=== PATIENT | female | born 1965 | race Caucasian/White ===

== ENCOUNTER 2018-12-27 17:42 | Observation (INO) ==
[2018-12-27] MEDS ORDERED: Ibuprofen 600 MG TABLET PO ONE (18:06)
[2018-12-27] MEDS ORDERED: 0.9 % Sodium Chloride 1,000 ML IVC ONE (18:26)
[2018-12-27] MEDS ORDERED: Ipratropium/Albuterol Neb 3 ML IH ONE (18:28)
[2018-12-27 18:52] LABS: Basophils % 0.3 %; Hematocrit 41.6 % (35.3-44.9); Hemoglobin 14.2 g/dL (11.5-15.4); Immature Granulocytes % 0.4 % (0-4); Lymphocytes # 1.4 K/mcL (0.6-4.6); Lymphocytes % 17.2 %; Mean Corpuscular HGB Conc 34.1 g/dL (31.6-35.5); Mean Corpuscular Hemoglobin 31.6 pg (28.0-33.3); Mean Corpuscular Volume 92.4 fL (83.0-100.0); Mean Platelet Volume 9.9 fL (9.4-12.4); Monocytes # 0.5 K/mcL (0.0-1.3); Monocytes % 6.3 %; Neutrophils # 6.1 K/mcL (1.6-8.9); Platelet Count 163 K/mcL (140-400); Red Cell Distribution Width 12.1 % (11.5-14.5); Segmented Neutrophils % 75.8 %
--- NOTE | 2018-12-27 18:53 | Emergency Department Note ---
Disposition Clinical Impression: Fever of unknown origin, Altered mental status Disposition: Admitted As Inpatient Condition: Fair Time of Disposition: 23:46 General Adult HPI - General Chief complaint: ED Fever Stated complaint: FLu like symptoms Time Seen by Provider: 12/27/18 18:05 Source: patient Limitations: no limitations Nursing Notes Reviewed: Yes Vital Signs Reviewed: Yes - History of Present Illness HPI Narrative: Male patient presents emergency with her friend. Concern for possible flu. She was started on Tamiflu yesterday. Has had muscle aches and not feeling well since Tuesday. Approximately 6 days ago. Patient reports a cough nausea vomiting. Denies any abdominal pain. Denies any chest pain or shortness of breath. Patient is confused at this time. Patient states that she started g etting confused today. Patient is not aware of the year. She is able to figure out where we are after asking some questions. She currently complains of feeling fatigued and muscle aches. Pain Scale: 10 - Related Data Allergies Allergy/AdvReac Type Severity Reaction Status Date / Time No Known Allergies Allergy Verified 11/28/18 12:29 All systems ED: reviewed and negative except as stated. Review of Systems: As Per HPI Constitutional: Reports: fever ENT ED: Reports: congestion Cardiovascular: Denies: chest pain, syncope Respiratory: Reports: cough. Denies: dyspnea Gastrointestinal: Reports: nausea, vomiting. Denies: abdominal pain, diarrhea Genitourinary: Denies: urgency, dysuria, frequency Neurological: Reports: headache Past Medical History - Past Medical History Attestation: Yes The following information was validated with the patient. Source: patient Medical history: Reports: RA, other Surgical history: Reports: Psychiatric history: Reports: anxiety, depression - Social History Smoking Status: Current every day smoker Smokeless Tobacco Status: No Alcohol use: Reports: none Drug use: Reports: none Physical Exam - General Limitations: no limitations General appearance: alert, in no apparent distress - Head Head exam: atraumatic, normocephalic, normal inspection - Eye Eye exam: Present: normal appearance, PERRL, EOMI - ENT ENT exam: normal exam, normal oropharynx, mucous membranes moist - Neck Neck exam: Present: normal inspection, full ROM, trachea midline - Chest Chest inspection: Present: normal inspection, symmetric chest wall rise - Respiratory Respiratory exam: Present: normal lung sounds bilaterally. Absent: respiratory distress, accessory muscle use - Cardiovascular Cardiovascular exam: Present: normal rhythm, tachycardia, normal heart sounds - Abdominal Exam Abdominal exam: Present: soft, Non-Tender. Absent: tenderness, distention, guarding, rebound, rigidity, organomegaly - Extremities Exam Extremities exam: Present: normal inspection, full ROM. Absent: tenderness, pedal edema - Neurological Exam Neurological exam: Present: alert, other (Confused. Unaware of the year. Knows the month.) - Psychiatric Psychiatric exam: Present: normal affect, normal mood - Skin Skin exam: Present: warm, dry, intact, normal color. Absent: rash, cyanosis, diaphoresis Course Course Narrative: Female patient who is presently being treated with Tamiflu presents confused. Complaining of body aches. She is febrile and tachycardic. We did get a basic lab workup we will get a CT of patient's head. Patient does not appear to have meningeal irritation. She is able to move her neck and has full range of motion of her legs as well. She is moving all 4 extremities well. Denies any trauma. Lung sounds are mildly rhonchorous. She does not appear to be in respiratory distress. We will do a sepsis workup on patient provide her with fluids at this time. She was started on Tamiflu yesterday for a likely flu diagnosis secondary to her body aches. - Reevaluation(s) Reevaluation #1: Patient's chest x-ray consistent with perivascular congestion. We will only give patient 1 L of fluids secondary to this. We are withholding further fluid to completely 30 mL/kg bolus. Patient's CT had showed an asymmetric hyperdense lesion in the cerebellar area. We will get an MRI. Flu swab was negative. Lab workup is grossly unremarkable. Time: 19:56 Reevaluation #2: MRI back. Shows that there is no mass the patient's head. Likely artifact on CT. Due to patient's altered mental status and her fever with no source we will pursue a LP at this time. We have started empiric antibiotics. We are still waiting for a urine. Patient has been consented. Time: 22:42 Reevaluation #3: Patient was placed on empiric antibiotics. Lumbar puncture was attempted with no success by myself or by Dr. Slaughter. Time: 23:15 - Consultations Consultation #1: Interventional radiology has been contacted and will be coming in to evaluate patient. Time: 23:42 Vital Signs Temperature 102.3 F H 12/27/18 17:50 Pulse Rate 105 12/27/18 17:50 Respiratory Rate 18 12/27/18 17:50 Blood Pressure 120/51 12/27/18 17:50 O2 Sat by Pulse Oximetry 96 12/27/18 17:50 Temperature 102.3 F H 12/27/18 17:50 Pulse Rate 105 12/27/18 17:50 Respiratory Rate 18 12/27/18 18:58 Blood Pressure 120/51 12/27/18 17:50 O2 Sat by Pulse Oximetry 96 12/27/18 18:58 Oxygen Delivery Oxygen Delivery Room Air Procedures - Lumbar Puncture Consent Obtained: written consent Time Out Performed: Yes Patient Position: left lateral decubitus Skin Prep: Povidone-Iodine 1%, 0.5% Chlorhexidine/Alcohol Local Anesthetic: lidocaine 1% Amount of anesthesia used (mL): 3 Spinal Needle Gauge: 20G Interspace Used: L4-L5 Complications: Need to have other Practitioner Attempt, unable to obtain CSF Medical Decision Making - Medical Records Medical records reviewed: Yes I reviewed the patient's medical records. - Lab Data Lab results reviewed: Yes I reviewed the patient's lab results. Result diagrams: 12/27/18 18:34 12/28/18 06:02 Lab Results 12/27/18 12/27/18 12/27/18 Range/Units 18:34 18:34 18:34 WBC 8.0 (4.3-11.1) K/mcL RBC 4.50 (3.82-4.97) M/mcL Hgb 14.2 (11.5-15.4) g/dL Hct 41.6 (35.3-44.9) % MCV 92.4 (83.0-100.0) fL MCH 31.6 (28.0-33.3) pg MCHC 34.1 (31.6-35.5) g/dL RDW 12.1 (11.5-14.5) % Plt Count 163 (140-400) K/mcL MPV 9.9 (9.4-12.4) fL Immature Gran % 0.4 (0-4) % Seg Neutrophils % 75.8 % Lymphocytes % 17.2 % Monocytes % 6.3 % Eosinophils % 0.0 % Basophils % 0.3 % Neutrophils # 6.1 (1.6-8.9) K/mcL Lymphocytes # 1.4 (0.6-4.6) K/mcL Monocytes # 0.5 (0.0-1.3) K/mcL Eosinophils # 0.0 (0.0-0.6) K/mcL Basophils # 0.0 (0.0-0.2) K/mcL Platelet Estimate Normal (Normal) PT (9.4-12.1) Seconds INR VBG pH (7.32-7.42) pH Units VBG pCO2 (41-51) mmHg VBG pO2 (25-50) mmHg VBG HCO3 (21-27) mEq/L Sodium 132 L (136-145) mEq/L Potassium 3.2 L (3.5-5.1) mEq/L Chloride 97 L (98-107) mEq/L Carbon Dioxide 26 (23-29) mEq/L BUN 9 (6-20) mg/dL Creatinine 0.52 L (0.60-1.20) mg/dL Est GFR ( Amer) > 60 (> 60) Est GFR (Non-Af Amer) > 60 (> 60) BUN/Creatinine Ratio 17 (6-26) Glucose 150 H (70-105) mg/dL Calculated Osmolality 276 L (280-300) Lactic Acid 0.9 (0.5-2.2) mmol/L Calcium 8.4 L (8.6-10.3) mg/dL Magnesium 1.8 (1.6-2.6) mg/dL Total Bilirubin 0.4 (0.3-1.0) mg/dL Direct Bilirubin 0.1 (0.0-0.2) mg/dL Indirect Bilirubin 0.3 (0.0-1.2) mg/dL AST 50 H (13-39) Units/L ALT 31 (7-52) Units/L Alkaline Phosphatase 48 (34-104) Units/L Creatine Kinase 87 (30-223) Units/L Troponin I < 0.03 (< 0.04) ng/mL B-Natriuretic Peptide (Less than 100) pg/mL Serum Total Protein 7.0 (6.4-8.9) g/dL Albumin 4.0 (3.5-5.7) g/dL Globulin 3.0 (2.4-3.5) g/dL Albumin/Globulin Ratio 1.3 (1.1-2.2) TSH 0.273 L (0.340-5.600) mcIU/mL 12/27/18 12/27/18 12/27/18 Range/Units 18:34 19:12 Unknown WBC (4.3-11.1) K/mcL RBC (3.82-4.97) M/mcL Hgb (11.5-15.4) g/dL Hct (35.3-44.9) % MCV (83.0-100.0) fL MCH (28.0-33.3) pg MCHC (31.6-35.5) g/dL RDW (11.5-14.5) % Plt Count (140-400) K/mcL MPV (9.4-12.4) fL Immature Gran % (0-4) % Seg Neutrophils % % Lymphocytes % % Monocytes % % Eosinophils % % Basophils % % Neutrophils # (1.6-8.9) K/mcL Lymphocytes # (0.6-4.6) K/mcL Monocytes # (0.0-1.3) K/mcL Eosinophils # (0.0-0.6) K/mcL Basophils # (0.0-0.2) K/mcL Platelet Estimate (Normal) PT 13.1 H (9.4-12.1) Seconds INR 1.2 VBG pH 7.37 (7.32-7.42) pH Units VBG pCO2 50 (41-51) mmHg VBG pO2 36 (25-50) mmHg VBG HCO3 29 H (21-27) mEq/L Sodium (136-145) mEq/L Potassium (3.5-5.1) mEq/L Chloride (98-107) mEq/L Carbon Dioxide (23-29) mEq/L BUN (6-20) mg/dL Creatinine (0.60-1.20) mg/dL Est GFR ( Amer) (> 60) Est GFR (Non-Af Amer) (> 60) BUN/Creatinine Ratio (6-26) Glucose (70-105) mg/dL Calculated Osmolality (280-300) Lactic Acid (0.5-2.2) mmol/L Calcium (8.6-10.3) mg/dL Magnesium (1.6-2.6) mg/dL Total Bilirubin (0.3-1.0) mg/dL Direct Bilirubin (0.0-0.2) mg/dL Indirect Bilirubin (0.0-1.2) mg/dL AST (13-39) Units/L ALT (7-52) Units/L Alkaline Phosphatase (34-104) Units/L Creatine Kinase (30-223) Units/L Troponin I (< 0.04) ng/mL B-Natriuretic Peptide 22 (Less than 100) pg/mL Serum Total Protein (6.4-8.9) g/dL Albumin (3.5-5.7) g/dL Globulin (2.4-3.5) g/dL Albumin/Globulin Ratio (1.1-2.2) TSH (0.340-5.600) mcIU/mL - Radiology Data Radiology results reviewed: Yes I reviewed the patient's radiology results. Chest X-Ray 12/27/18 18:27 IMPRESSION: Cardiomegaly with pulmonary vascular congestion. D/ / Kendell Gordillo MD / Kendell Gordillo MD Interpreting Provider: Kendell Gordillo MD Head CT 12/27/18 18:28 IMPRESSION: Asymmetric low density in the right cerebellar hemisphere without definitive mass effect on the 4th ventricle. This may be artifactual. However, MRI may be more helpful to exclude parenchymal edema No acute abnormality otherwise D/ / Kyree Iqbal / Kyree Iqbal Interpreting Provider: Kyree Iqbal - EKG Data EKG #1 EKG attestation: Yes I reviewed and interpreted this EKG. EKG results narrative: Normal sinus rhythm at a rate of 93. VT interval is 135. QRS duration is 92. QT is 337. QTC is 420. No signs of acute ischemia. No signs of WPW or [place]. Good R-wave progression. Low voltage throughout. No previous EKG to compare to. Attestation Statement - Attestation Attestation: Resident Attestation: I examined this patient and my medical decision making was reviewed with the Resident Physician. I agree with the documented findings, disposition and treatment plan as described except to the extent set forth belo w. We independently had [id number] contact with the patient. Patient presenting for concern for confusion and fever. Patient was initially having symptoms proximally 4 days ago consistent with influenza. Patient had Tamiflu called in by PCP. Patient is been taking this with no significant impr ovements. Patient had previously been complaining of headache cough body ache and fever. Patient today had very significantly slowed speech, did not recognize family member did not recognize where she was did not know what year it was. In the emergency permit she was found to be febrile at 102 with associated tachycardia. Concern for underlying sepsis. Patient had initial blood work obtained. Due to the altered mental status and need for possible lumbar puncture a CT head and coags were ordered. CT head with abnormal reading and concern for fourth ventricle compression. MRI was ordered and previous findings were related to artifact. He should not blood work is otherwise unremarkable. Did discuss this with family at bedside including . Consent was obtained for lumbar puncture. Lumbar puncture was attempted by resident physician Dr. Silva which was unsuccessful. I was present throughout the entirety of the procedure. I attempted lumbar puncture and was also unsuccessful. At this time a call was placed to interventional radiology. I did discuss with the on-call interventional radiologist, he will come tonight for lumbar puncture.. Antibiotics have been given. Case was signed out to the hospitalist, Dr. Covarrubias pending lumbar puncture and lumbar puncture results.
[2018-12-27 18:59] LABS: INR 1.2; Prothrombin Time 13.1 Seconds (9.4-12.1)
[2018-12-27 19:14] LABS: Platelet Estimate Normal (Normal)
[2018-12-27 19:19] LABS: Alanine Aminotransferase 31 Units/L (7-52); Albumin/Globulin Ratio 1.3 (1.1-2.2); Alkaline Phosphatase 48 Units/L (34-104); Aspartate Amino Transferase 50 Units/L (13-39); BUN/Creatinine Ratio 17 (6-26); Bilirubin,Direct 0.1 mg/dL (0.0-0.2); Bilirubin,Indirect 0.3 mg/dL (0.0-1.2); Bilirubin,Total 0.4 mg/dL (0.3-1.0); Blood Urea Nitrogen 9 mg/dL (6-20); Calcium 8.4 mg/dL (8.6-10.3); Carbon Dioxide 26 mEq/L (23-29); Chloride 97 mEq/L (98-107); Creatine Kinase 87 Units/L (30-223); Glucose 150 mg/dL (70-105); Magnesium 1.8 mg/dL (1.6-2.6); Osmolality,Calculated 276 (280-300); Potassium 3.2 mEq/L (3.5-5.1); Sodium 132 mEq/L (136-145); Troponin I < 0.03 ng/mL (< 0.04); eGFR For Non-African Americans > 60 (> 60)
[2018-12-27 19:26] LABS: VBG HCO3 29 mEq/L (21-27); VBG PCO2 50 mmHg (41-51); VBG PH 7.37 pH Units (7.32-7.42); VBG PO2 36 mmHg (25-50)
[2018-12-27 19:26] LABS: Thyroid Stimulating Hormone 0.273 mcIU/mL (0.340-5.600)
[2018-12-27] MEDS ORDERED: Gadolinium Contrast Agent (WT Based) IV PRN (19:53)
[2018-12-27] MEDS ORDERED: cefTRIAXone 2,000 MG in 0.9 % Sodium Chloride Mini Bag 100 ML IVPB ONE (22:35)
[2018-12-27] MEDS ORDERED: Acyclovir 500 MG in D5% in Water 100 ML IVPB ONE (22:37)
[2018-12-27] MEDS ORDERED: Ampicillin 2 GM in 0.9 % Sodium Chloride Mini Bag 100 ML IVPB STA (22:55)
[2018-12-27] MEDS ORDERED: *HR* HYDROmorphone (PF) 1 MG/ML SYRINGE IVP ONE (23:29)
[2018-12-27 23:38] LABS: Bilirubin,Urine Negative (Negative); Blood,Urine Trace (Negative); Clarity,Urine Clear (Clear); Color,Urine Yellow (Yellow); Glucose,Urine (UA) Normal (Normal); Ketones,Urine 15 mg/dL (Negative); Leukocyte Esterase,Urine Negative (Negative); Nitrite,Urine Negative (Negative); PH,Urine 6.5 pH Units (5.0-8.0); Protein,Urine 30 mg/dL (Neg-Trace); Specific Gravity,Urine 1.021 (1.010-1.025); Urobilinogen,Urine Normal (Normal)
[2018-12-27 23:40] LABS: Bacteria,Urine Few per hpf (None-Few); Hyaline Casts,Urine None Seen per lpf (None-Few); RBC,Urine 0-3 per hpf (0-3); Squamous Epithelial Cell,Urine Many per lpf (None-Few); WBC,Urine 0-3 per hpf (0-3)
[2018-12-28] MEDS ORDERED: Acetaminophen 325 MG TABLET PO PRN (02:15)
[2018-12-28] MEDS ORDERED: Potassium Chloride Elixir 20 MEQ/15 ML UDC PO ONE (02:15)
[2018-12-28] MEDS ORDERED: Ringers Solution, Lactated 1,000 ML IVC SCH (02:15)
[2018-12-28] MEDS: Ibuprofen 600 MG TABLET PO PRN ×2 (02:50→21:37)
[2018-12-28] MEDS: Ondansetron 4 MG/2 ML VIAL IVP PRN ×2 (03:33→08:35)
[2018-12-28 04:55] LABS: Adenovirus DETECTED (Not Detect); Bordetella Pertussis Not Detected (Not Detect); Chlamydophila pneumoniae Not Detected (Not Detect); Coronavirus 229E Not Detected (Not Detect); Coronavirus HKU1 Not Detected (Not Detect); Coronavirus NL63 Not Detected (Not Detect); Coronavirus OC43 Not Detected (Not Detect); Human Metapneumovirus Not Detected (Not Detect); Human Rhinovirus/Enterovirus Not Detected (Not Detect); Influenza A Subtype 2009 H1 Not Detected (Not Detect); Influenza A Untypeable Not Detected (Not Detect); Influenza B Not Detected (Not Detect); Mycoplasma pneumoniae Not Detected (Not Detect); Parainfluenza Virus 1 Not Detected (Not Detect); Parainfluenza Virus 2 Not Detected (Not Detect); Parainfluenza Virus 3 Not Detected (Not Detect); Parainfluenza Virus 4 Not Detected (Not Detect); Respiratory Syncytial Virus Not Detected (Not Detect)
--- NOTE | 2018-12-28 05:08 | Internal Med History&Physical ---
Date of Encounter: 12/28/18 Time of Encounter: 05:05 Internal Medicine - H&P: HPI Chief complaint: ams Plans for Post Hospital Care: Home History of present illness: Kae Rogers is a 53 year old woman with rheumatoid arthritis on DMARDs who presents with the complaint of generalized myalgias, headaches, dry nonproductive cough, headaches, fatigue, anorexia and malaise. She states that it has been present for the past 5 days but more recently became febrile. She was started on oseltamivir by her PCP after phone report of her symptoms. She was brought in by friends now due to worsening, stating that her mental status had changed, notably confused and unaware of her surroundings. In the ER she was febrile and tachycardic with a benign non-meningeal physical exam. Given the AMS and fever there was concern for meningoencephalitis so 2 attempts were made at bedside for LP but were unsuccessful. IR was called in however there was no supervisor microbiology technologists available to assist in the procedure therefore it has been deferred to later in the morning. MRI of her brain was unremarkable. She received empiric antimicrobials prior to admission. On my assessment she reports feeling better. Was aware of her surroundings and able to respond to me appropriately although her speech pattern was somewhat slow. She works as a nurse in a correctional facility. She has no animals at home. She smokes daily. No reported sick contacts. Vitals: Reviewed General: Well-developed woman lying in bed in NAD Skin: Warm and supple. HEENT: Moist mucous membranes. No conjunctivae pallor. PERRLA. EOMI. No nuchal rigidity. Neck: No lymphadenopathy. No JVD. No carotid bruits. No palpable thyroid. Chest: Normal thoracic expansion. Clear to auscultation. Heart: Normal S1 & S2; rhythmic. No rubs or murmurs. Abdomen: distended, soft and non-tender to palpation. No peritoneal reaction. Extremities: No c/c/e Neurological: Awake, alert and oriented to person, place and time. No focal deficits. Psych: Affect appropriate. Past Med Surg Social Fam HX - Past Medical History Medical history: RA, other Additional medical history: Anemia, [place] Spotted Fever Psychiatric history: anxiety, depression - Past Surgical History Surgical History: , knee replacement Additional surgical history: Carpal tunnel surgery, tubal ligation - Social History Smoking Status: Current every day smoker Smokeless Tobacco Status: No Alcohol use: none Drug use: none Internal Medicine - H&P: Meds HYDROcodone/Acet 5/325 mg [[place] 5-325 mg] 1 tab PO Q4H PRN 12/28/18 [History] Humira 12/28/18 [History] Methotrexate 12/28/18 [History] Sertraline [Zoloft] 50 mg PO DAILY 12/28/18 [History] Tramadol HCl [Ultram] 50 mg PO QID PRN 12/28/18 [History] Zolpidem [Ambien] 10 mg PO HS 12/28/18 [History] Allergy/AdvReac Type Severity Reaction Status Date / Time No Known Allergies Allergy Verified 11/28/18 12:29 All Systems PM: A 10-system review of systems was performed and is negative for pertinent findings except as documented above in the HPI. Family history reviewed and found non-contributory. - Constitutional Vitals: Temp Pulse Resp BP Pulse Ox 99 F 73 18 108/76 94 12/28/18 02:50 12/28/18 02:50 12/28/18 02:50 12/28/18 02:50 12/28/18 02:50 Exam: . Internal Med - H&P Results - Labs CBC & Chem 7: 12/27/18 18:34 12/27/18 18:34 Labs: Short CBC 12/27/18 Range/Units 18:34 WBC 8.0 (4.3-11.1) K/mcL Hgb 14.2 (11.5-15.4) g/dL Hct 41.6 (35.3-44.9) % Plt Count 163 (140-400) K/mcL Neutrophils # 6.1 (1.6-8.9) K/mcL BMP 12/27/18 18:34 Sodium 132 L Potassium 3.2 L Chloride 97 L Carbon Dioxide 26 BUN 9 Creatinine 0.52 L Glucose 150 H Calcium 8.4 L Cardiac Enzymes 12/27/18 Range/Units 18:34 Troponin I < 0.03 (< 0.04) ng/mL Liver Function 12/27/18 Range/Units 18:34 Total Bilirubin 0.4 (0.3-1.0) mg/dL Direct Bilirubin 0.1 (0.0-0.2) mg/dL AST 50 H (13-39) Units/L ALT 31 (7-52) Units/L Alkaline Phosphatase 48 (34-104) Units/L Albumin 4.0 (3.5-5.7) g/dL Urine 12/27/18 Range/Units 23:23 Urine Color Yellow (Yellow) Urine Clarity Clear (Clear) Urine pH 6.5 (5.0-8.0) pH Units Ur Specific [place] 1.021 (1.010-1.025) Urine Protein 30 H (Neg-Trace) mg/dL Urine Glucose (UA) Normal (Normal) mg/dL - ABG Interpretation ABG results: 12/27/18 19:12 VBG pH 7.37 VBG pCO2 50 VBG pO2 36 VBG HCO3 29 H - Impressions ITS Impressions Chest X-Ray 12/27/18 18:27 IMPRESSION: Cardiomegaly with pulmonary vascular congestion. D/ / Kendell Gordillo MD / Kendell Gordillo MD Interpreting Provider: Kendell Gordillo MD Head CT 12/27/18 18:28 IMPRESSION: Asymmetric low density in the right cerebellar hemisphere without definitive mass effect on the 4th ventricle. This may be artifactual. However, MRI may be more helpful to exclude parenchymal edema No acute abnormality otherwise D/ / Kyree Iqbal / Kyree Iqbal Interpreting Provider: Kyree Iqbal Brain MRI 12/27/18 19:53 IMPRESSION: No abnormality in the right cerebellum, likely an artifactual finding at CT. No abnormal enhancement or other acute intracranial finding. Stable examination compared to prior study of 05/07/2016. D/ / Kendell Pinon MD / Kendell Pinon MD Interpreting Provider: Kendell Pinon MD - Assessment and Plan (1) Fever Current Visit: Yes Status: Acute Assessment and plan: I suspect that the patient has a viral illness that is not necessarily influenza that is playing a role. 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 Although she is febrile, she would be more toxic appearing if this were acute bacterial meningitis and not so quick to turn around. It is possible that she may have a viral encephalitic process that has spread from her upper respiratory tract and therefore I am in favor of pursuing the LP this morning for assessment. She has received broad spectrum empiric antimicrobials which I will not be continuing at this point pending further studies. Although the influenza swab is negative, which prompts stopping oseltamivir, will get a respiratory virus panel as other viruses could be at play greatly debilitating her immunocompromised state based on the RA medications she is on. She has no signs of skin/soft tissue infection, no lower respiratory symptoms and a chest x-ray that seems more like vascular congestion than focal consolidation, no dysuric symptoms and a negative UA. Will provide symptomatic relief measures with anti-tussive agents, fluids, ibuprofen and APAP for now. Qualifiers: Fever type: unspecified Qualified Code(s): R50.9 - Fever, unspecified (2) Smoker Current Visit: Yes Status: Acute Assessment and plan: 5 minutes were spent counseling and educating the patient on this habit. director field services and resources were made available. (3) Obesity Current Visit: Yes Status: Acute Assessment and plan: Therapeutic last education for weight loss provided. Qualifiers: Obesity type: due to excess calories Obesity classification: adult class 3 (BMI >= 40) Serious obesity comorbidity presence: with serious comorbidity Body mass index: BMI 40.0-44.9 Qualified Code(s): E66.01 - Morbid (severe) obesity due to excess calories; Z68.41 - Body mass index (BMI) 40.0-44.9, adult - Time Spent With Patient Total time spent is greater than 50% in coordination of care (as documented) at patient's floor/unit and/or counseling patient: Greater than 35 minutes
[2018-12-28] MEDS ORDERED: traMADol 50 MG TABLET PO PRN (05:10)
[2018-12-28] MEDS ORDERED: GuaiFENesin Liq 200 MG/10 ML UDC PO PRN (05:26)
[2018-12-28 06:51] LABS: BUN/Creatinine Ratio 16 (6-26); Blood Urea Nitrogen 7 mg/dL (6-20); Calcium 7.8 mg/dL (8.6-10.3); Carbon Dioxide 26 mEq/L (23-29); Chloride 105 mEq/L (98-107); Glucose 118 mg/dL (70-105); Osmolality,Calculated 285 (280-300); Potassium 3.4 mEq/L (3.5-5.1); Sodium 138 mEq/L (136-145); eGFR For Non-African Americans > 60 (> 60)
--- NOTE | 2018-12-28 09:29 | Internal Med Progress Note ---
Hospitalist Progress Note - Encounter Date of Encounter: 12/28/18 Time of Encounter: 08:40 - Subjective Interval History: Ms. Rogers was seen at bedside this morning. She was laying in bed and complained of nausea. She presented overnight due to episodes of feeling weakness, fever, lack of appetite and diarrhea. She reports the diarrhea started on Tuesday, 5 days ago. The diarrhea is described as watery and has several episodes throughout the day. She also has nausea and anorexia. Onset of diarrhea. At presentation her potassium, chloride and sodium were low likely due to the diarrhea. She reports since her admission her weakness has improved. She reports her gait is intact but she does feel weaker. She denies chest pain, shortness of breath, abdominal pain or emesis. - Exam Vitals: Temp Pulse Resp BP Pulse Ox 98.5 F 69 18 100/56 97 12/28/18 07:05 12/28/18 07:05 12/28/18 07:05 12/28/18 07:05 12/28/18 07:05 - Assessment and Plan (1) Gastroenteritis Current Visit: Yes Status: Acute Assessment and Plan: Suspected gastroenteritis. Has had episodes of profuse watery diarrhea ongoing for the past 5 days. She reports eating out on Tuesday.. Diarrhea is nonbloody At presentation had electrolyte abnormalities including low sodium low potassium and low chloride. -Continue IV fluids -Continue Phenergan -Lumbar puncture pending (2) Fever Current Visit: Yes Status: Acute Assessment and Plan: Likely secondary to gastroenteritis versus adenovirus She does have immunosuppression due to her chronic use of DMARD for rheumatoid arthritis. Does report headaches but notes that she does have chronic headaches. At presentation was noted to have "altered mental status" which this morning seems to have improved as she is alert oriented 3 -Stool studies are pending -Lumbar puncture pending (3) Smoker Current Visit: Yes Status: Acute (4) Obesity Current Visit: Yes Status: Acute - Time Spent with Patient Total time spent is greater than 50% in coordination of care (as documented) at patient's floor/unit and/or counseling patient: Internal Medicine: Result - Labs CBC & Chem 7: 12/27/18 18:34 12/28/18 06:02 Labs: Short CBC 12/27/18 Range/Units 18:34 WBC 8.0 (4.3-11.1) K/mcL Hgb 14.2 (11.5-15.4) g/dL Hct 41.6 (35.3-44.9) % Plt Count 163 (140-400) K/mcL Neutrophils # 6.1 (1.6-8.9) K/mcL BMP 12/27/18 12/28/18 18:34 06:02 Sodium 132 L 138 Potassium 3.2 L 3.4 L Chloride 97 L 105 Carbon Dioxide 26 26 BUN 9 7 Creatinine 0.52 L 0.43 L Glucose 150 H 118 H Calcium 8.4 L 7.8 L Cardiac Enzymes 12/27/18 Range/Units 18:34 Troponin I < 0.03 (< 0.04) ng/mL Liver Function 12/27/18 Range/Units 18:34 Total Bilirubin 0.4 (0.3-1.0) mg/dL Direct Bilirubin 0.1 (0.0-0.2) mg/dL AST 50 H (13-39) Units/L ALT 31 (7-52) Units/L Alkaline Phosphatase 48 (34-104) Units/L Albumin 4.0 (3.5-5.7) g/dL Urine 12/27/18 Range/Units 23:23 Urine Color Yellow (Yellow) Urine Clarity Clear (Clear) Urine pH 6.5 (5.0-8.0) pH Units Ur Specific [place] 1.021 (1.010-1.025) Urine Protein 30 H (Neg-Trace) mg/dL Urine Glucose (UA) Normal (Normal) mg/dL - ABG Interpretation ABG results: PT/INR, D-dimer PT 13.1 Seconds (9.4-12.1) H 12/27/18 18:34 - Impressions Impressions Chest X-Ray 12/27/18 18:27 IMPRESSION: Cardiomegaly with pulmonary vascular congestion. D/ / Kendell Gordillo MD / Kendell Gordillo MD Interpreting Provider: Kendell Gordillo MD Head CT 12/27/18 18:28 IMPRESSION: Asymmetric low density in the right cerebellar hemisphere without definitive mass effect on the 4th ventricle. This may be artifactual. However, MRI may be more helpful to exclude parenchymal edema No acute abnormality otherwise D/ / Kyree Iqbal / Kyree Iqbal Interpreting Provider: Kyree Iqbal Brain MRI 12/27/18 19:53 IMPRESSION: No abnormality in the right cerebellum, likely an artifactual finding at CT. No abnormal enhancement or other acute intracranial finding. Stable examination compared to prior study of 05/07/2016. D/ / Kendell Pinon MD / Kendell Pinon MD Interpreting Provider: Kendell Pinon MD Consult Discharge Plan - Plan Referrals: NONE,PCP [Primary Care Provider] - (2) Fever Qualifiers: Fever type: unspecified Qualified Code(s): R50.9 - Fever, unspecified (4) Obesity Qualifiers: Obesity type: due to excess calories Obesity classification: adult class 3 (BMI >= 40) Serious obesity comorbidity presence: with serious comorbidity Body mass index: BMI 40.0-44.9 Qualified Code(s): E66.01 - Morbid (severe) obesity due to excess calories; Z68.41 - Body mass index (BMI) 40.0-44.9, adult
--- NOTE | 2018-12-28 09:36 | Electrocardiograph Report ---
[place] [id number] Test Date: 2018-12-27 Pat Name: Kae Rogers Department: EXAMC9 Room: 2N15 Gender: F Senior Media Buyer: : 1965 Requested By: Mathew Slaughter Order Number: [id number] Reading MD: Santiago Krause Measurements Intervals [place] Rate: 93 P: 12 [place]: 135 QRS: 57 QRSD: 92 T: 52 QT: 337 QTc: 420 Interpretive Statements Sinus rhythm Low voltage, precordial leads Electronically Signed On 12-28-2018 9:34:26 EDT by Santiago Krause
--- NOTE | 2018-12-28 10:09 | Internal Med Progress Note ---
<Berry Robertson - Last Filed: 12/28/18 16:51> Hospitalist Progress Note - Encounter Date of Encounter: 12/28/18 Time of Encounter: 09:45 - Subjective Interval History: Patient is today is resting comfortably in her bed. The patient is complaining of nausea, a wet non-productive cough and headaches. He denies congestion, sore throat, hemoptysis, palpitations, chest pain, edema, vomiting, constipation, hematochezia, melena, dysuria, hematuria. The patient is scheduled for a lumbar puncture later this afternoon. The nurse suggested phenergan to help with the nausea. - Exam Vitals: Temp Pulse Resp BP Pulse Ox 98.5 F 69 18 100/56 97 12/28/18 07:05 12/28/18 07:05 12/28/18 07:05 12/28/18 07:05 12/28/18 07:05 Exam: GEN: AA&O x1, interactive Cardiac: RRR, no murmurs, no rubs, no edema Lungs: BTA b/l, rales in the left lung. no wheezing Neuro: CN II-VII grossly intact, Abdomen: BSx4, soft, nontender Hydration status: dry mucus membranes I & O 12/27/18 17:42 thru 12/28/18 08:53 Intake Total 1560 Output Total 200 Balance 1360 Weight 111.221 kg Intake: IV Fluids 1560 0.9 % Sodium Chloride 1,000 ML 1000 @ 999 mls/hr IVC .Q1H1M ONE Rx# :[id number] Zovirax 500 MG In Dextrose 5% 110 100 ML @ 90.164 mls/hr IVPB ONCE ONE Rx#:[id number] Ampicillin 2 GM In 0.9 % Sodium 100 Chloride (Mini-Bag +) 100 ML @ 200 mls/hr IVPB NOW STA Rx#: [id number] Vancocin 1,000 MG In 0.9 % 250 Sodium Chloride 250 ML @ 167 mls/hr IVPB ONCE ONE Rx#: [id number] Rocephin 2,000 MG In 0.9 % 100 Sodium Chloride (Mini-Bag +) 100 ML @ 200 mls/hr IVPB ONCE ONE Rx#:[id number] Oral 0 Output: Urine 200 Other: Meal NPO Percent of Meal Consumed 0% Blood Glucose* 114 Brain MRI: no acute or abnormal findings Chest x-ray: Trachea midline, No vinicio abnormalities, Cardiomegally present, Right hemidiaphram elevated. Perivascular congestion noted. - Assessment and Plan (1) Viral upper respiratory infection Current Visit: Yes Status: Acute Assessment and Plan: Viral URI secondary to Adenovirus Temperature: 102.3 --> 98.5, WBC: 8, Non-productive cough, upper Respiratory symptoms Continue Supportive care (2) Gastroenteritis Current Visit: Yes Status: Acute Assessment and Plan: Gastroenteritis possibly due to C. Diff secondary to prolonged diarrhea Watery diarrhea for 5-6 days, C. Diff toxin gene positive. Start Oral Vancomycin 125QID for 10 days. (3) Encephalopathy acute Current Visit: Yes Status: Acute Assessment and Plan: Encephalopathy possibly secondary to Adenovirus or C. Diff AA&Ox1 patient struggled with word finding, unable to tell the year or president . Patient was alert Start Dexamethasone 10 mg IVP Q6H MATILDA, Ceftriaxone 20 mls @ 600 mls/hr IVP Q24SC H, Ampicillin Sodium 100 mls @ 200 mls/HR IVPB Q4 MATILDA, Acyclovir 110 mls @ 100 mls/hr IVPB Q8HR MATILDA LP showed mildly elevated Glucose, CSF is clear and colorless in appearance. (4) Chronic back pain Current Visit: No Status: Chronic Assessment and Plan: Continue Home [place] (5) Insomnia Current Visit: No Status: Chronic Assessment and Plan: Continue home Zolpidem (6) Depression Current Visit: No Status: Chronic Assessment and Plan: Continue home Zoloft DVT Prophylaxis: Continue Heparin Sodium 5000 units SQ Q12HCO MATILDA - Time Spent with Patient Total time spent is greater than 50% in coordination of care (as documented) at patient's floor/unit and/or counseling patient: Internal Medicine: Result - Labs CBC & Chem 7: 12/27/18 18:34 12/28/18 06:02 Labs: Short CBC 12/27/18 Range/Units 18:34 WBC 8.0 (4.3-11.1) K/mcL Hgb 14.2 (11.5-15.4) g/dL Hct 41.6 (35.3-44.9) % Plt Count 163 (140-400) K/mcL Neutrophils # 6.1 (1.6-8.9) K/mcL BMP 12/27/18 12/28/18 18:34 06:02 Sodium 132 L 138 Potassium 3.2 L 3.4 L Chloride 97 L 105 Carbon Dioxide 26 26 BUN 9 7 Creatinine 0.52 L 0.43 L Glucose 150 H 118 H Calcium 8.4 L 7.8 L Cardiac Enzymes 12/27/18 Range/Units 18:34 Troponin I < 0.03 (< 0.04) ng/mL Liver Function 12/27/18 Range/Units 18:34 Total Bilirubin 0.4 (0.3-1.0) mg/dL Direct Bilirubin 0.1 (0.0-0.2) mg/dL AST 50 H (13-39) Units/L ALT 31 (7-52) Units/L Alkaline Phosphatase 48 (34-104) Units/L Albumin 4.0 (3.5-5.7) g/dL Urine 12/27/18 Range/Units 23:23 Urine Color Yellow (Yellow) Urine Clarity Clear (Clear) Urine pH 6.5 (5.0-8.0) pH Units Ur Specific [place] 1.021 (1.010-1.025) Urine Protein 30 H (Neg-Trace) mg/dL Urine Glucose (UA) Normal (Normal) mg/dL - ABG Interpretation ABG results: PT/INR, D-dimer PT 13.1 Seconds (9.4-12.1) H 12/27/18 18:34 - Impressions Impressions Chest X-Ray 12/27/18 18:27 IMPRESSION: Cardiomegaly with pulmonary vascular congestion. D/ / Kendell Gordillo MD / Kendell Gordillo MD Interpreting Provider: Kendell Gordillo MD Head CT 12/27/18 18:28 IMPRESSION: Asymmetric low density in the right cerebellar hemisphere without definitive mass effect on the 4th ventricle. This may be artifactual. However, MRI may be more helpful to exclude parenchymal edema No acute abnormality otherwise D/ / Kyree Iqbal / Kyree Iqbal Interpreting Provider: Kyree Iqbal Brain MRI 12/27/18 19:53 IMPRESSION: No abnormality in the right cerebellum, likely an artifactual finding at CT. No abnormal enhancement or other acute intracranial finding. Stable examination compared to prior study of 05/07/2016. D/ / Kendell Pinon MD / Kendell Pinon MD Interpreting Provider: Kendell Pinon MD Consult Discharge Plan - Plan Referrals: NONE,PCP [Non-Partnered Physician] - <Buhpendra Dee - Last Filed: 12/28/18 17:53> Hospitalist Progress Note - Encounter Date of Encounter: 12/28/18 - Exam Vitals: Temp Pulse Resp BP Pulse Ox 98.8 F 87 18 110/72 96 12/28/18 16:20 12/28/18 16:20 12/28/18 16:20 12/28/18 16:20 12/28/18 16:20 - Assessment and Plan (1) Fever Current Visit: Yes Status: Acute (2) Smoker Current Visit: Yes Status: Acute (3) Obesity Current Visit: Yes Status: Acute (4) Gastroenteritis Current Visit: Yes Status: Acute - Time Spent with Patient Total time spent is greater than 50% in coordination of care (as documented) at patient's floor/unit and/or counseling patient: Internal Medicine: Result - Labs CBC & Chem 7: 12/27/18 18:34 12/28/18 06:02 Labs: Short CBC 12/27/18 Range/Units 18:34 WBC 8.0 (4.3-11.1) K/mcL Hgb 14.2 (11.5-15.4) g/dL Hct 41.6 (35.3-44.9) % Plt Count 163 (140-400) K/mcL Neutrophils # 6.1 (1.6-8.9) K/mcL BMP 12/27/18 12/28/18 18:34 06:02 Sodium 132 L 138 Potassium 3.2 L 3.4 L Chloride 97 L 105 Carbon Dioxide 26 26 BUN 9 7 Creatinine 0.52 L 0.43 L Glucose 150 H 118 H Calcium 8.4 L 7.8 L Cardiac Enzymes 12/27/18 Range/Units 18:34 Troponin I < 0.03 (< 0.04) ng/mL Liver Function 12/27/18 Range/Units 18:34 Total Bilirubin 0.4 (0.3-1.0) mg/dL Direct Bilirubin 0.1 (0.0-0.2) mg/dL AST 50 H (13-39) Units/L ALT 31 (7-52) Units/L Alkaline Phosphatase 48 (34-104) Units/L Albumin 4.0 (3.5-5.7) g/dL Urine 12/27/18 Range/Units 23:23 Urine Color Yellow (Yellow) Urine Clarity Clear (Clear) Urine pH 6.5 (5.0-8.0) pH Units Ur Specific [place] 1.021 (1.010-1.025) Urine Protein 30 H (Neg-Trace) mg/dL Urine Glucose (UA) Normal (Normal) mg/dL - ABG Interpretation ABG results: PT/INR, D-dimer PT 13.1 Seconds (9.4-12.1) H 12/27/18 18:34 - Impressions Impressions Chest X-Ray 12/27/18 18:27 IMPRESSION: Cardiomegaly with pulmonary vascular congestion. D/ / Kendell Gordillo MD / Kendell Gordillo MD Interpreting Provider: Kendell Gordillo MD Head CT 12/27/18 18:28 IMPRESSION: Asymmetric low density in the right cerebellar hemisphere without definitive mass effect on the 4th ventricle. This may be artifactual. However, MRI may be more helpful to exclude parenchymal edema No acute abnormality otherwise D/ / Kyree Iqbal / Kyree Iqbal Interpreting Provider: Kyree Iqbal Brain MRI 12/27/18 19:53 IMPRESSION: No abnormality in the right cerebellum, likely an artifactual finding at CT. No abnormal enhancement or other acute intracranial finding. Stable examination compared to prior study of 05/07/2016. D/ / Kendell Pinon MD / Kenedll Pinon MD Interpreting Provider: Kendell Pinon MD Lumbar Puncture Fluoroscopy 12/28/18 07:53 IMPRESSION: Successful fluoroscopic-guided lumbar puncture. D/ / Gibson Juarez MD / Gibson Juarez MD Interpreting Provider: Gibson Juarez MD - Attending Attestation I examined this patient and my medical decision-making was reviewed with the Resident Physician and medical student. I agree with the documented findings, disposition and treatment plan as described except to the extent set forth below. 53 year old female presents for flu like symptoms and reported altered mental status. She was febrile on admission, + adenovirus. An MRI was done that showed no acute findings. She had two attempts at LP to rule out encephalitis/meningitis but attempts were unsuccessful. She received amp/Rocephin/Acyclovir in the ED. She is currently hemodynamically stable. On my exam, she has is in no acute distress, AAO x3, no nuchal rigidity. Sensation and strength preserved. Labs and VS reviewed. Patient will need LP to rule out STITCHDOWN TOE FORMER infection. She does not appear altered currently, and she is non-toxic appearing. Once LP done, will begin emperic antibiotic therapy and antiviral therapy with close monitoring of hemodynamics. <Bhupendra Dee - Last Filed: 12/28/18 17:53> (1) Fever Qualifiers: Fever type: unspecified Qualified Code(s): R50.9 - Fever, unspecified (3) Obesity Qualifiers: Obesity type: due to excess calories Obesity classification: adult class 3 (BMI >= 40) Serious obesity comorbidity presence: with serious comorbidity Body mass index: BMI 40.0-44.9 Qualified Code(s): E66.01 - Morbid (severe) obesity due to excess calories; Z68.41 - Body mass index (BMI) 40.0-44.9, adult
[2018-12-28 13:14] LABS: Campylobacter by PCR Not detected (Not detect)
[2018-12-28 13:18] LABS: Adenovirus F 40/41 PCR Not detected (Not detect); Astrovirus PCR Not detected (Not detect); C.difficile Toxin A/B Gene PCR DETECTED (Not detect); Cryptosporidium by PCR Not detected (Not detect); Cyclospora cayetanensis PCR Not detected (Not detect); E. coli O157 by PCR Not detected (Not detect); Entamoeba histolytica PCR Not detected (Not detect); Enteroaggregative E.coli(EAEC) Not detected (Not detect); Enteropathogenic E.coli(EPEC) Not detected (Not detect); Enterotoxigenic E.coli (ETEC) Not detected (Not detect); Giardia lamblia PCR Not detected (Not detect); Norovirus GI/GII PCR Not detected (Not detect); Plesiomonas shigelloides PCR Not detected (Not detect); Rotavirus A PCR Not detected (Not detect); Salmonella PCR Not detected (Not detect); Sapovirus PCR Not detected (Not detect); Shig/EnteroinvasiveE coli EIEC Not detected (Not detect); Shigalike tox-prod E coli STEC Not detected (Not detect); Vibrio PCR Not detected (Not detect); Vibrio cholerae PCR Not detected (Not detect); Yersinia enterocolitica PCR Not detected (Not detect)
[2018-12-28 15:04] LABS: Appearance,CSF Clear (Clear); Red Blood Cell,CSF < 0.002 M/mcL
[2018-12-28 15:24] LABS: Glucose,CSF 71 mg/dL (40-70); Total Protein,CSF 44 mg/dL (15-45)
[2018-12-28] MEDS ORDERED: Vancomycin 1,750 MG in 0.9 % Sodium Chloride 250 ML IVPB SCH (16:00)
[2018-12-28] MEDS: Vancomycin Oral Soln 125 MG/2.5 ML UDC PO SCH ×3 (16:14→21:33)
[2018-12-28] MEDS: *HR* HYDROcodone/Acet 5/325 mg TABLET PO PRN (16:22)
[2018-12-28] MEDS: Ampicillin 2 GM in 0.9 % Sodium Chloride Mini Bag 100 ML IVPB SCH ×2 (17:35→21:33)
[2018-12-28] MEDS: Acyclovir 500 MG in D5% in Water 100 ML IVPB SCH (18:05)
[2018-12-28] MEDS: Dexamethasone 10 MG/ML VIAL IVP SCH (18:11)
[2018-12-28] MEDS: *HR* Heparin 5,000 UNIT/ML VIAL SQ SCH (21:34)
[2018-12-28 22:17] LABS: Amphetamine Screen,Urine Negative ng/mL (Cutoff=1000); Barbiturate Screen,Urine Negative ng/mL (Cutoff=200); Benzodiazepines Screen,Urine Negative ng/mL (Cutoff=200); Cannabinoid Screen,Urine Negative ng/mL (Cutoff = 50); Cocaine Screen,Urine Negative ng/mL (Cutoff= 300); Opiate Screen,Urine Positive ng/mL (Cutoff=300); Phencyclidine Screen,Urine Negative ng/mL (Cutoff=25)
[2018-12-29] MEDS ORDERED: cefTRIAXone 2,000 MG in Water for inj. (sterile) 20 ML 20 ML IVP SCH
[2018-12-29] MEDS: Acyclovir 500 MG in D5% in Water 100 ML IVPB SCH ×3 (00:10→18:38)
[2018-12-29] MEDS: Dexamethasone 10 MG/ML VIAL IVP SCH ×3 (00:10→11:12)
[2018-12-29] MEDS: Ampicillin 2 GM in 0.9 % Sodium Chloride Mini Bag 100 ML IVPB SCH ×3 (00:10→09:00)
[2018-12-29] MEDS: *HR* Heparin 5,000 UNIT/ML VIAL SQ SCH ×2 (05:07→17:31)
[2018-12-29 05:08] LABS: Basophils % 0.2 %; Hematocrit 39.6 % (35.3-44.9); Hemoglobin 13.5 g/dL (11.5-15.4); Immature Granulocytes % 0.5 % (0-4); Lymphocytes # 0.8 K/mcL (0.6-4.6); Lymphocytes % 18.4 %; Mean Corpuscular HGB Conc 34.1 g/dL (31.6-35.5); Mean Corpuscular Volume 93.8 fL (83.0-100.0); Mean Platelet Volume 10.5 fL (9.4-12.4); Monocytes # 0.1 K/mcL (0.0-1.3); Monocytes % 3.4 %; Neutrophils # 3.2 K/mcL (1.6-8.9); Platelet Count 196 K/mcL (140-400); Red Blood Count 4.22 M/mcL (3.82-4.97); Red Cell Distribution Width 12.5 % (11.5-14.5); Segmented Neutrophils % 77.5 %
[2018-12-29 05:35] LABS: Alanine Aminotransferase 29 Units/L (7-52); Albumin 3.5 g/dL (3.5-5.7); Albumin/Globulin Ratio 1.1 (1.1-2.2); Alkaline Phosphatase 42 Units/L (34-104); Aspartate Amino Transferase 46 Units/L (13-39); BUN/Creatinine Ratio 16 (6-26); Bilirubin,Total 0.2 mg/dL (0.3-1.0); Blood Urea Nitrogen 8 mg/dL (6-20); Calcium 8.1 mg/dL (8.6-10.3); Carbon Dioxide 25 mEq/L (23-29); Chloride 104 mEq/L (98-107); Globulin 3.1 g/dL (2.4-3.5); Glucose 243 mg/dL (70-105); Osmolality,Calculated 292 (280-300); Potassium 3.8 mEq/L (3.5-5.1); Sodium 138 mEq/L (136-145); Total Protein 6.6 g/dL (6.4-8.9); eGFR For Non-African Americans > 60 (> 60)
[2018-12-29 05:53] LABS: Platelet Estimate Normal (Normal)
[2018-12-29] MEDS: Vancomycin Oral Soln 125 MG/2.5 ML UDC PO SCH ×4 (07:46→21:31)
--- NOTE | 2018-12-29 10:18 | Internal Med Progress Note ---
<Berry Robertson - Last Filed: 12/29/18 15:59> Hospitalist Progress Note - Encounter Date of Encounter: 12/29/18 Time of Encounter: 09:00 - Subjective Interval History: Today the patient is doing much better. She is still complaining of fatigue,chills and mild coughing. Patient denies headache, dyspnea, wheezing, palpitations, edema, chest pain. She denies abdominal pain, melena, hematochezia, dysuria or increase in urinary frequency. The patient also expressed concerns of a "cracked" tongue. All questions were answered. - Exam Vitals: Temp Pulse Resp BP Pulse Ox 98.3 F 67 18 106/70 91 12/29/18 07:35 12/29/18 07:35 12/29/18 07:35 12/29/18 07:35 12/29/18 07:35 Exam: GEN: AA&O x1, interactive Cardiac: RRR, no murmurs, no rubs, no edema Lungs: BTA b/l, no rales. no wheezing Abdomen: BSx4, soft, nontender Hydration status: mildly dry mucus membranes I & O 12/27/18 17:42 thru 12/28/18 08:53 Intake Total 1560 Output Total 200 Balance 1360 Weight 111.221 kg Intake: IV Fluids 1560 0.9 % Sodium Chloride 1,000 ML 1000 @ 999 mls/hr IVC .Q1H1M ONE Rx# :[id number] Zovirax 500 MG In Dextrose 5% 110 100 ML @ 90.164 mls/hr IVPB ONCE ONE Rx#:[id number] Ampicillin 2 GM In 0.9 % Sodium 100 Chloride (Mini-Bag +) 100 ML @ 200 mls/hr IVPB NOW STA Rx#: [id number] Vancocin 1,000 MG In 0.9 % 250 Sodium Chloride 250 ML @ 167 mls/hr IVPB ONCE ONE Rx#: [id number] Rocephin 2,000 MG In 0.9 % 100 Sodium Chloride (Mini-Bag +) 100 ML @ 200 mls/hr IVPB ONCE ONE Rx#:[id number] Oral 0 Output: Urine 200 Other: Meal NPO Percent of Meal Consumed 0% Blood Glucose* 114 Brain MRI: no acute or abnormal findings Chest x-ray: Trachea midline, No vinicio abnormalities, Cardiomegally present, Right hemidiaphram elevated. Perivascular congestion noted. - Assessment and Plan (1) C. difficile colitis Current Visit: Yes Status: Acute Assessment and Plan: Gastroenteritis due to C. Diff secondary to prolonged diarrhea Watery diarrhea for 5-6 days, C. Diff toxin gene positive. Continue Oral Vancomycin 125QID. This is day 2 of a 10 day treatment. (2) Viral upper respiratory infection Current Visit: Yes Status: Acute Assessment and Plan: Viral URI secondary to Adenovirus Temperature: 102.3 --> 98.5 --> 98.3, WBC: 8 --> 4.1, Non-productive cough, upper Respiratory symptoms Continue Supportive care, Resolving (3) Encephalopathy acute Current Visit: Yes Status: Resolved Assessment and Plan: Encephalopathy possibly secondary to Adenovirus or C. Diff AA&Ox3, Patient was alert HSV lab not back yet Stop Dexamethasone, Ceftriaxone, Ampicillin Continue Acyclovir 110 mls @ 100 mls/hr IVPB Q8HR MATILDA LP showed mildly elevated Glucose, Normal protein levels, CSF is clear and colorless in appearance (4) Chronic back pain Current Visit: No Status: Chronic Assessment and Plan: Continue Home [place] (5) Insomnia Current Visit: No Status: Chronic Assessment and Plan: Continue home Zolpidem (6) Depression Current Visit: No Status: Chronic Assessment and Plan: Continue home Zoloft - Time Spent with Patient Total time spent is greater than 50% in coordination of care (as documented) at patient's floor/unit and/or counseling patient: less than 15 minutes Internal Medicine: Result - Labs CBC & Chem 7: 12/29/18 03:54 12/29/18 03:54 Labs: Short CBC 12/29/18 Range/Units 03:54 WBC 4.1 L (4.3-11.1) K/mcL Hgb 13.5 (11.5-15.4) g/dL Hct 39.6 (35.3-44.9) % Plt Count 196 (140-400) K/mcL Neutrophils # 3.2 (1.6-8.9) K/mcL BMP 12/29/18 03:54 Sodium 138 Potassium 3.8 Chloride 104 Carbon Dioxide 25 BUN 8 Creatinine 0.51 L Glucose 243 H Calcium 8.1 L Liver Function 12/29/18 Range/Units 03:54 Total Bilirubin 0.2 L (0.3-1.0) mg/dL AST 46 H (13-39) Units/L ALT 29 (7-52) Units/L Alkaline Phosphatase 42 (34-104) Units/L Albumin 3.5 (3.5-5.7) g/dL - ABG Interpretation ABG results: PT/INR, D-dimer PT 13.1 Seconds (9.4-12.1) H 12/27/18 18:34 - Impressions Impressions Lumbar Puncture Fluoroscopy 12/28/18 07:53 IMPRESSION: Successful fluoroscopic-guided lumbar puncture. D/ / Gibson Juarez MD / Gibson Juarez MD Interpreting Provider: Gibson Juarez MD Consult Discharge Plan - Plan Referrals: Tiffany Sutton MD [Primary Care Provider] - 01/05/19 12:30 pm <Bhupendra Dee - Last Filed: 12/29/18 17:41> Hospitalist Progress Note - Encounter Date of Encounter: 12/29/18 - Exam Vitals: Temp Pulse Resp BP Pulse Ox 98.1 F 77 16 118/79 90 12/29/18 15:05 12/29/18 15:05 12/29/18 15:05 12/29/18 15:05 12/29/18 15:05 - Assessment and Plan (1) Fever Current Visit: Yes Status: Acute (2) Smoker Current Visit: Yes Status: Acute (3) Obesity Current Visit: Yes Status: Acute (4) Gastroenteritis Current Visit: Yes Status: Acute - Time Spent with Patient Total time spent is greater than 50% in coordination of care (as documented) at patient's floor/unit and/or counseling patient: Internal Medicine: Result - Labs CBC & Chem 7: 12/29/18 03:54 12/29/18 03:54 Labs: Short CBC 12/29/18 Range/Units 03:54 WBC 4.1 L (4.3-11.1) K/mcL Hgb 13.5 (11.5-15.4) g/dL Hct 39.6 (35.3-44.9) % Plt Count 196 (140-400) K/mcL Neutrophils # 3.2 (1.6-8.9) K/mcL BMP 12/29/18 03:54 Sodium 138 Potassium 3.8 Chloride 104 Carbon Dioxide 25 BUN 8 Creatinine 0.51 L Glucose 243 H Calcium 8.1 L Liver Function 12/29/18 Range/Units 03:54 Total Bilirubin 0.2 L (0.3-1.0) mg/dL AST 46 H (13-39) Units/L ALT 29 (7-52) Units/L Alkaline Phosphatase 42 (34-104) Units/L Albumin 3.5 (3.5-5.7) g/dL - ABG Interpretation ABG results: PT/INR, D-dimer PT 13.1 Seconds (9.4-12.1) H 12/27/18 18:34 - Attending Attestation I examined this patient and my medical decision-making was reviewed with the Resident Physician and medical student. I agree with the documented findings, disposition and treatment plan as described except to the extent set forth below. Patient doing significantly better. No altered mental status episodes. VS: Rev iewed, stable, afebrile. Physical exam shows patient with now MMM which was dry yesterday. Lung sounds normal, neuro exam was non-focal. Labs: reviewed. Patient likely had symptoms due to URI and C diff infection causing dehydration. Emperic antibiotic therapy discontinued. Continue PO vancomycin. Advance diet as tolerated. <Bhupendra Dee - Last Filed: 12/29/18 17:41> (1) Fever Qualifiers: Fever type: unspecified Qualified Code(s): R50.9 - Fever, unspecified (3) Obesity Qualifiers: Obesity type: due to excess calories Obesity classification: adult class 3 (BMI >= 40) Serious obesity comorbidity presence: with serious comorbidity Body mass index: BMI 40.0-44.9 Qualified Code(s): E66.01 - Morbid (severe) obesity due to excess calories; Z68.41 - Body mass index (BMI) 40.0-44.9, adult
[2018-12-29] MEDS ORDERED: Ampicillin 2 GM in 0.9 % Sodium Chloride Mini Bag 100 ML IVPB SCH (12:00)
--- NOTE | 2018-12-29 22:38 | Electrocardiograph Report ---
[place] [facility] Test Date: 2018-12-27 Pat Name: Kae Rogers Department: EXAMC9 Room: 3B55 Gender: F Resaw Feeder: : 1965 Requested By: Julian Oscar Order Number: [id number] Reading MD: Becca Moreland Measurements Intervals [place] Rate: 94 P: 23 AR: 140 QRS: 50 QRSD: 94 T: 54 QT: 339 QTc: 424 Interpretive Statements Sinus rhythm Low voltage, precordial leads Electronically Signed On 12-29-2018 22:36:50 EDT by Becca Moreland
[2018-12-30] MEDS: Acyclovir 500 MG in D5% in Water 100 ML IVPB SCH ×2 (01:23→07:49)
[2018-12-30 06:13] LABS: Basophils % 0.3 %; Hematocrit 37.2 % (35.3-44.9); Hemoglobin 12.6 g/dL (11.5-15.4); Immature Granulocytes % 0.8 % (0-4); Lymphocytes # 1.3 K/mcL (0.6-4.6); Lymphocytes % 20.6 %; Mean Corpuscular HGB Conc 33.9 g/dL (31.6-35.5); Mean Corpuscular Hemoglobin 31.7 pg (28.0-33.3); Mean Corpuscular Volume 93.5 fL (83.0-100.0); Mean Platelet Volume 10.3 fL (9.4-12.4); Monocytes # 0.6 K/mcL (0.0-1.3); Monocytes % 9.6 %; Neutrophils # 4.5 K/mcL (1.6-8.9); Platelet Count 260 K/mcL (140-400); Red Blood Count 3.98 M/mcL (3.82-4.97); Red Cell Distribution Width 12.3 % (11.5-14.5); Segmented Neutrophils % 68.7 %
[2018-12-30 06:36] LABS: BUN/Creatinine Ratio 14 (6-26); Blood Urea Nitrogen 7 mg/dL (6-20); Calcium 8.4 mg/dL (8.6-10.3); Carbon Dioxide 30 mEq/L (23-29); Chloride 105 mEq/L (98-107); Glucose 162 mg/dL (70-105); Osmolality,Calculated 298 (280-300); Potassium 3.6 mEq/L (3.5-5.1); Sodium 143 mEq/L (136-145); eGFR For Non-African Americans > 60 (> 60)
[2018-12-30 06:43] LABS: Platelet Estimate Normal (Normal)
[2018-12-30] MEDS: *HR* Heparin 5,000 UNIT/ML VIAL SQ SCH ×2 (07:21→17:30)
[2018-12-30] MEDS: Vancomycin Oral Soln 125 MG/2.5 ML UDC PO SCH ×4 (09:04→22:51)
--- NOTE | 2018-12-30 11:18 | Internal Med Progress Note ---
<Marlene Lopez - Last Filed: 12/30/18 11:15> Hospitalist Progress Note - Encounter Date of Encounter: 12/30/18 Time of Encounter: 08:15 - Subjective Interval History: Ms. Rogers was seen at bedside this morning. She reported she feels much better today. Her confusion has resolved. She inquired about discharge but reported she continues to have loose stools. Yesterday she had watery stool. She is tolerating diet but continues to have decreased appetite. After her intake and output improves she would be safer for discharge. She denied fever, chills, emesis, abdominal pain or hematochezia. - Exam Vitals: Temp Pulse Resp BP Pulse Ox 98.8 F 77 16 101/51 92 12/30/18 07:05 12/30/18 07:05 12/30/18 07:05 12/30/18 07:05 12/30/18 07:05 Exam: GEN: AA&O x1, interactive Head: Atraumatic, normocephalic. Eyes: EOMI, sclerae anicteric Cardiac: RRR, no murmurs, no rubs, no edema Lungs: Decreased sounds lower lobes, no rales. no wheezing Abdomen: BSx4, soft, nontender ENT: Mucous membranes moist. Normal oral mucosa and dentition. Trachea midline. I & O 12/27/18 17:42 thru 12/28/18 08:53 Intake Total 1560 Output Total 200 Balance 1360 Weight 111.221 kg Intake: IV Fluids 1560 0.9 % Sodium Chloride 1,000 ML 1000 @ 999 mls/hr IVC .Q1H1M ONE Rx# :[id number] Zovirax 500 MG In Dextrose 5% 110 100 ML @ 90.164 mls/hr IVPB ONCE ONE Rx#:[id number] Ampicillin 2 GM In 0.9 % Sodium 100 Chloride (Mini-Bag +) 100 ML @ 200 mls/hr IVPB NOW STA Rx#: [id number] Vancocin 1,000 MG In 0.9 % 250 Sodium Chloride 250 ML @ 167 mls/hr IVPB ONCE ONE Rx#: [id number] Rocephin 2,000 MG In 0.9 % 100 Sodium Chloride (Mini-Bag +) 100 ML @ 200 mls/hr IVPB ONCE ONE Rx#:[id number] Oral 0 Output: Urine 200 Other: Meal NPO Percent of Meal Consumed 0% Blood Glucose* 114 Brain MRI: no acute or abnormal findings Chest x-ray: Trachea midline, No vinicio abnormalities, Cardiomegally present, Right hemidiaphram elevated. Perivascular congestion noted. - Assessment and Plan (1) Viral upper respiratory infection Current Visit: Yes Status: Acute Assessment and Plan: Viral URI secondary to Adenovirus Temperature: 102.3 --> 98.5 --> 98.3 --> 98.8, WBC: 8 --> 4.1 --> 6.5 Non-productive cough, upper Respiratory symptoms Continue Supportive care Resolving (2) Encephalopathy acute Current Visit: Yes Status: Resolved Assessment and Plan: Encephalopathy possibly secondary to Adenovirus or C. Diff Underwent a with confusion and fever of 102.3 subsequently required an LP AA&Ox3, Patient is now alert HSV lab not back yet Stoped Dexamethasone, Ceftriaxone, Ampicillin yesterday Continue Acyclovir 110 mls @ 100 mls/hr IVPB Q8HR MATILDA LP showed mildly elevated Glucose, Normal protein levels, CSF is clear and colorless in appearance could represent normal fluid versus viral (3) Obesity Current Visit: Yes Status: Acute Assessment and Plan: BMI of 46.7. (4) Chronic back pain Current Visit: No Status: Chronic Assessment and Plan: Continue home [place] (5) Insomnia Current Visit: No Status: Chronic Assessment and Plan: Continue home zolpidem (6) Depression Current Visit: No Status: Chronic Assessment and Plan: Continue home Zoloft (7) Smoker Current Visit: Yes Status: Acute Assessment and Plan: Received smoking cessation counseling at admission (8) C. difficile colitis Current Visit: Yes Status: Acute Assessment and Plan: Gastroenteritis due to C. Diff secondary to prolonged diarrhea Watery diarrhea for 5-6 days prior to admission, C. Diff toxin gene positive. This morning she reports her diarrhea has improved but has not had formed stools She is tolerating diet but continues to not have great appetite. Continue Oral Vancomycin 125QID. This is day 3 of a 14 day treatment. - Time Spent with Patient Total time spent is greater than 50% in coordination of care (as documented) at patient's floor/unit and/or counseling patient: Internal Medicine: Result - Labs CBC & Chem 7: 12/30/18 04:55 12/30/18 04:55 Labs: Short CBC 12/30/18 Range/Units 04:55 WBC 6.5 D (4.3-11.1) K/mcL Hgb 12.6 (11.5-15.4) g/dL Hct 37.2 (35.3-44.9) % Plt Count 260 (140-400) K/mcL Neutrophils # 4.5 (1.6-8.9) K/mcL BMP 12/30/18 04:55 Sodium 143 Potassium 3.6 Chloride 105 Carbon Dioxide 30 H BUN 7 Creatinine 0.49 L Glucose 162 H Calcium 8.4 L - ABG Interpretation ABG results: PT/INR, D-dimer PT 13.1 Seconds (9.4-12.1) H 12/27/18 18:34 Consult Discharge Plan - Plan Referrals: Tiffany Sutton MD [Primary Care Provider] - 01/05/19 12:30 pm <Bhupendra Dee - Last Filed: 12/30/18 21:38> Hospitalist Progress Note - Encounter Date of Encounter: 12/30/18 - Exam Vitals: Temp Pulse Resp BP Pulse Ox 98.3 F 73 16 124/88 94 12/30/18 19:23 12/30/18 19:23 12/30/18 19:23 12/30/18 19:23 12/30/18 19:23 - Assessment and Plan (1) Smoker Current Visit: Yes Status: Acute (2) Obesity Current Visit: Yes Status: Acute (3) Viral upper respiratory infection Current Visit: Yes Status: Acute (4) Encephalopathy acute Current Visit: Yes Status: Resolved (5) Chronic back pain Current Visit: No Status: Chronic (6) Insomnia Current Visit: No Status: Chronic (7) Depression Current Visit: No Status: Chronic (8) C. difficile colitis Current Visit: Yes Status: Acute - Time Spent with Patient Total time spent is greater than 50% in coordination of care (as documented) at patient's floor/unit and/or counseling patient: Internal Medicine: Result - Labs CBC & Chem 7: 12/30/18 04:55 12/30/18 04:55 Labs: Short CBC 12/30/18 Range/Units 04:55 WBC 6.5 D (4.3-11.1) K/mcL Hgb 12.6 (11.5-15.4) g/dL Hct 37.2 (35.3-44.9) % Plt Count 260 (140-400) K/mcL Neutrophils # 4.5 (1.6-8.9) K/mcL BMP 12/30/18 04:55 Sodium 143 Potassium 3.6 Chloride 105 Carbon Dioxide 30 H BUN 7 Creatinine 0.49 L Glucose 162 H Calcium 8.4 L - ABG Interpretation ABG results: PT/INR, D-dimer PT 13.1 Seconds (9.4-12.1) H 12/27/18 18:34 - Impressions Impressions Chest X-Ray 12/30/18 14:59 IMPRESSION: Increased density within the lower lungs, mainly on the right, concerning for pneumonia. That should be followed to resolution. D/ / Alvarado Correa MD / Alvarado Correa MD Interpreting Provider: Alvarado Correa MD - Attending Attestation I examined this patient and my medical decision-making was reviewed with the Resident Physician. I agree with the documented findings, disposition and treatment plan as described except to the extent set forth below. <Marlene Lopez - Last Filed: 12/30/18 11:15> (3) Obesity Qualifiers: Obesity type: due to excess calories Obesity classification: adult class 3 (BMI >= 40) Serious obesity comorbidity presence: with serious comorbidity Body mass index: BMI 40.0-44.9 Qualified Code(s): E66.01 - Morbid (severe) obesity due to excess calories; Z68.41 - Body mass index (BMI) 40.0-44.9, adult (4) Chronic back pain Qualifiers: Back pain location: low back pain Back pain laterality: midline Sciatica presence: without sciatica Qualified Code(s): M54.5 - Low back pain; G89.29 - Other chronic pain (5) Insomnia Qualifiers: Insomnia type: unspecified Qualified Code(s): G47.00 - Insomnia, unspecified (6) Depression Qualifiers: Depression Type: unspecified Qualified Code(s): F32.9 - Major depressive disorder, single episode, unspecified <Bhupendra Dee - Last Filed: 12/30/18 21:38> (2) Obesity Qualifiers: Obesity type: due to excess calories Obesity classification: adult class 3 (BMI >= 40) Serious obesity comorbidity presence: with serious comorbidity Body mass index: BMI 40.0-44.9 Qualified Code(s): E66.01 - Morbid (severe) obesity due to excess calories; Z68.41 - Body mass index (BMI) 40.0-44.9, adult (5) Chronic back pain Qualifiers: Back pain location: low back pain Back pain laterality: midline Sciatica presence: without sciatica Qualified Code(s): M54.5 - Low back pain; G89.29 - O ther chronic pain (6) Insomnia Qualifiers: Insomnia type: unspecified Qualified Code(s): G47.00 - Insomnia, unspecified (7) Depression Qualifiers: Depression Type: unspecified Qualified Code(s): F32.9 - Major depressive disorder, single episode, unspecified
[2018-12-30] MEDS: *HR* HYDROcodone/Acet 5/325 mg TABLET PO PRN (13:54)
[2018-12-30] MEDS ORDERED: Azithromycin 500 MG in D5% in Water 250 ML IVPB SCH (21:00)
[2018-12-30] MEDS ORDERED: cefTRIAXone 1,000 MG in Water for inj. (sterile) 20 ML 10 ML IVP SCH (21:00)
[2018-12-31] MEDS: *HR* Heparin 5,000 UNIT/ML VIAL SQ SCH (05:23)
[2018-12-31 06:58] LABS: Hematocrit 35.6 % (35.3-44.9); Mean Corpuscular HGB Conc 33.7 g/dL (31.6-35.5); Mean Corpuscular Hemoglobin 31.4 pg (28.0-33.3); Mean Corpuscular Volume 93.2 fL (83.0-100.0); Mean Platelet Volume 9.7 fL (9.4-12.4); Platelet Count 279 K/mcL (140-400); Red Blood Count 3.82 M/mcL (3.82-4.97); Red Cell Distribution Width 12.2 % (11.5-14.5)
[2018-12-31 07:16] LABS: BUN/Creatinine Ratio 17 (6-26); Blood Urea Nitrogen 8 mg/dL (6-20); Calcium 8.1 mg/dL (8.6-10.3); Carbon Dioxide 29 mEq/L (23-29); Chloride 107 mEq/L (98-107); Glucose 82 mg/dL (70-105); Osmolality,Calculated 295 (280-300); Potassium 3.2 mEq/L (3.5-5.1); Sodium 144 mEq/L (136-145); eGFR For Non-African Americans > 60 (> 60)
[2018-12-31 07:40] LABS: Lymphocytes # 2.3 K/mcL (0.6-4.6); Monocytes # 0.3 K/mcL (0.0-1.3); Neutrophils # 4.2 K/mcL (1.6-8.9)
[2018-12-31 07:41] LABS: Platelet Estimate Normal (Normal)
[2018-12-31 07:42] LABS: Reactive Lymphocytes Present (Not Present)
[2018-12-31] MEDS: Vancomycin Oral Soln 125 MG/2.5 ML UDC PO SCH (10:00)
[2018-12-31] MEDS: *HR* HYDROcodone/Acet 5/325 mg TABLET PO PRN (10:05)
[2018-12-31 10:50] VITALS: BP 111/74
--- NOTE | 2018-12-31 10:54 | Discharge Summary ---
<Marlene Lopez - Last Filed: 12/31/18 10:49> - NOTES TO OUTPATIENT PROVIDER Notes to Outpatient Provider: Ms. Rogers presented to the ED complaining of confusion, myalgia, headache. At presentation she was noted to have temperature 102.3 and due to her confusion underwent lumbar puncture which showed normal protein and mildly elevated glucose. She would need review of the viral studies for CSF studies. She also complained of profuse watery diarrhea and her stool culture was positive for C. difficile. Started on oral vancomycin for C. difficile and has improvement in her symptoms is having good oral intake. She also complained of productive cough and is being treated for pneumonia. Will be discharged with azithromycin and Omnicef for community acquired pneumonia. Outpatient she needs follow-up on her elevated LFT her AST which was noted to be 50 at admission 2 days ago was 46. She also would require repeat chest x-ray in 3-4 weeks for resolution of opacity. Orders not resulted at time of discharge: Pending orders 12/27/18 13:27 Culture,Blood [BC] Stat 12/27/18 22:44 Culture,CSF [RM] Stat 12/27/18 23:53 HSV 1 Glycoprotein G IgG CSF Stat HSV 2 Glycoprotein G IgG CSF Stat Date of Encounter: 12/31/18 Time of Encounter: 08:15 - Discharge Diagnosis (1) C. difficile colitis Priority: Primary Status: Acute (2) Viral upper respiratory infection Priority: Secondary Status: Acute (3) Encephalopathy acute Priority: Secondary Status: Resolved (4) Obesity Priority: Secondary Status: Acute Qualifiers: Obesity type: due to excess calories Obesity classification: adult class 3 (BMI >= 40) Serious obesity comorbidity presence: with serious comorbidity Body mass index: BMI 40.0-44.9 Qualified Code(s): E66.01 - Morbid (severe) obesity due to excess calories; Z68.41 - Body mass index (BMI) 40.0-44.9, adult (5) Chronic back pain Priority: Secondary Status: Chronic Qualifiers: Back pain location: low back pain Back pain laterality: midline Sciatica presence: without sciatica Qualified Code(s): M54.5 - Low back pain; G89.29 - Other chronic pain (6) Insomnia Priority: Secondary Status: Chronic Qualifiers: Insomnia type: unspecified Qualified Code(s): G47.00 - Insomnia, unspecified (7) Depression Priority: Secondary Status: Chronic Qualifiers: Depression Type: unspecified Qualified Code(s): F32.9 - Major depressive disorder, single episode, unspecified (8) Smoker Priority: Secondary Status: Acute (9) Community acquired pneumonia Priority: Secondary Status: Acute Qualifiers: Laterality: right Lung location: lower lobe of lung Qualified Code(s): J18.1 - Lobar pneumonia, unspecified organism Hospital course: Ms. Rogers is a 53 year old female with past medical history of rheumatoid arthritis on DMARD at home. She presented to the hospital complaining of confusion, myalgia, headache and nonproductive cough. Later she also complained of profuse watery diarrhea. At presentation she had fever of 102.3. She underwent lumbar puncture due to her confusion and fever which showed normal protein mildly elevated glucose. She also had a stool study which was positive for C. difficile and her respiratory panel was positive for adenovirus. She was treated with oral vancomycin for C. difficile and supportive therapy for her adenovirus. She also complained that her cough was progressing to productive. Her chest x-ray showed opacity in the right lower lung lobe. She was started on azithromycin and ceftriaxone for community-acquired pneumonia. She will be discharged with azithromycin and Omnicef to complete her therapy for community acquired pneumonia; additionally oral vancomycin for C. difficile treatment. This morning she is comfortable on room air and denies fever, chills, nausea, emesis or shortness of breath. She has good oral intake and longer having watery stools. On admission she was noted to have elevated AST and would require outpatient follow-up for her LFTs. Additionally she will require repeat chest x-ray 2-4 weeks resolution of opacity noted. Discharge discussed with: patient - Time Spent with Patient Total time spent providing and/or coordinating discharge services: - Discharge Medications Prescriptions: New Azithromycin [Zithromax [place]] 500 mg PO DAILY 2 Days #2 tablet Cefdinir [Omnicef] 300 mg PO BID 5 Days #10 capsule Vancomycin Oral Soln [Firvanq] 125 mg PO QID 10 Days #43 udc Continue Tramadol HCl [Ultram] 50 mg PO QID PRN PRN Reason: Pain HYDROcodone/Acet 5/325 mg [[place] 5-325 mg] 1 tab PO Q4H PRN PRN Reason: Pain Zolpidem [Ambien] 10 mg PO HS PRN PRN Reason: Insomnia Sertraline [Zoloft] 50 mg PO DAILY predniSONE [PredniSONE] 10 - 20 mg PO DAILY PRN PRN Reason: JOINT SWELLING/PAIN LORazepam [Ativan] 0.5 mg PO DAILY PRN PRN Reason: Anxiety Adalimumab [Humira(Cf) Pen] 40 mg SQ QWEEK Gabapentin [Neurontin] 300 mg PO TID PRN PRN Reason: NERVE PAIN Home Medications: Adalimumab [Humira(Cf) Pen] 40 mg SQ QWEEK 12/28/18 [History] Gabapentin [Neurontin] 300 mg PO TID PRN 12/28/18 [History] HYDROcodone/Acet 5/325 mg [[place] 5-325 mg] 1 tab PO Q4H PRN 12/28/18 [History] LORazepam [Ativan] 0.5 mg PO DAILY PRN 12/28/18 [History] Sertraline [Zoloft] 50 mg PO DAILY 12/28/18 [History] Tramadol HCl [Ultram] 50 mg PO QID PRN 12/28/18 [History] Zolpidem [Ambien] 10 mg PO HS PRN 12/28/18 [History] predniSONE [PredniSONE] 10 - 20 mg PO DAILY PRN 12/28/18 [History] Azithromycin [Zithromax [place]] 500 mg PO DAILY 2 Days #2 tablet 12/31/18 [Rx] Cefdinir [Omnicef] 300 mg PO BID 5 Days #10 capsule 12/31/18 [Rx] Vancomycin Oral Soln [Firvanq] 125 mg PO QID 10 Days #43 udc 12/31/18 [Rx] Allergies/Adverse Reactions: Allergy/AdvReac Type Severity Reaction Status Date / Time No Known Allergies Allergy Verified 11/28/18 12:29 Date of admission: 12/28/18 01:22 Primary care physician: Tiffany Sutton Consults: 12/27/18 23:42 Consult to Interventional Radiology [CONS] Stat Consulting Provider: Radiology Interventional Cols Reason for Consult: lp needed Call Completed: Yes Discharging clinician: Marlene Lopez Anticipated date of discharge: 12/31/18 - Constitutional Vitals: Temp Pulse Resp BP Pulse Ox 98.3 F 63 18 101/69 91 12/31/18 08:25 12/31/18 08:25 12/31/18 08:25 12/31/18 08:25 12/31/18 08:25 General appearance: Present: A&O X 3, pleasant, no acute distress, obese Exam: GEN: AA&O x1, interactive Head: Atraumatic, normocephalic. Eyes: EOMI, sclerae anicteric Cardiac: RRR, no murmurs, no rubs, no edema Lungs: Decreased sounds lower lobes, no rales. no wheezing Abdomen: BSx4, soft, nontender ENT: Mucous membranes moist. Normal oral mucosa and dentition. Trachea midline. - Head Head exam: Present: atraumatic, normocephalic - Eye Eye exam: Present: EOMI, normal appearance - ENT ENT exam: Present: mucous membranes moist - Neck Neck exam general surgery: Present: full ROM, normal inspection - Respiratory Respiratory exam: Present: decreased breath sounds (lower lung lobes). Absent: rhonchi, stridor - Cardiovascular Cardiovascular exam: Present: RRR, +S1, +S2 - GI/Abdominal GI/Abdominal exam: Present: normal bowel sounds, soft. Absent: firm, guarding, rigid - Extremities Exam Extremities exam: Present: warm. Absent: pedal edema, tenderness - Psychiatric Psychiatric exam: Present: normal affect, normal mood - Skin Skin exam: Present: intact, warm. Absent: rash - Patient Status Disposition: Home, Self-Care Condition: Fair Overall status at discharge: patient is progressing back to baseline - Discharge Instructions Instructions: Azithromycin (By mouth), Vancomycin (By mouth), Cefdinir (By mouth), Clostridium Difficile Infection (DC) Follow Up With: Tiffany Sutton MD [Primary Care Provider] - 01/05/19 12:30 pm Additional Instructions: Your medications were sent to [facility]. Please pick them up today. Follow-up appointments: If there is not an appointment listed below, please call your physician and schedule a follow-up appointment. If you have congestive heart failure and your symptoms return, make an appointment with your physician. Medication List: Carry an up to date list of medications you are taking at all time. We have given you an updated medication list including any new medications that you have been prescribed. Please provide that list to your primary provider Symptoms: If your condition changes or you experience any of the following symptoms, notify your physician immediately: Unusual or worsening pain, fever, persistent nausea and vomiting, bleeding, increase in swelling (especially in your legs), sudden weight gain, extreme dizziness, chest pain, increased drainage or redness from a wound or incision. Go to the emergency department if you experience a problem with breathing. Weights: If you have a history of swelling or shortness of breath, weigh yourself daily and notify your physician if you have a weight gain of two or more pounds in one day or 5 or more pounds in a week. If you experience any of the warning signs for stroke: Sudden numbness or weakness of the face, arm or leg; especially on one side of the body, sudden confusion, trouble speaking or understanding, sudden trouble seeing in one or both eyes, sudden trouble walking, dizziness, loss of balance or coordination, sudden sever headache with no cause; Call 911 or go to the emergency room. Stroke is a medical emergency. Some risk factors for stroke: Age, cigarette smoking, diabetes, excessive alcohol consumption, family history, high blood pressure, overweight, physical inactivity, prior stroke, heart attack, diagnosis of carotid artery stenosis or other artery disease. If you smoke, STOP: Smoking or tobacco use significantly increases your risk of heart and lung disease. Your chance of disease greatly increases if you continue to smoke. For more information, call the [place] tobacco quit line for smoking cessation 2-397-BTUU-NOW ( ) - Diet and Activity Activity: increase activity as tolerated Diet: advance to your usual diet <Bhupendra Dee - Last Filed: 12/31/18 18:10> Orders not resulted at time of discharge: Pending orders 12/27/18 13:27 Culture,Blood [BC] Stat 12/27/18 23:53 HSV 1 Glycoprotein G IgG CSF Stat HSV 2 Glycoprotein G IgG CSF Stat Date of Encounter: 12/31/18 - Discharge Diagnosis (1) Smoker Status: Acute (2) Obesity Status: Acute Qualifiers: Obesity type: due to excess calories Obesity classification: adult class 3 (BMI >= 40) Serious obesity comorbidity presence: with serious comorbidity Body mass index: BMI 40.0-44.9 Qualified Code(s): E66.01 - Morbid (severe) obesity due to excess calories; Z68.41 - Body mass index (BMI) 40.0-44.9, adult (3) Viral upper respiratory infection Status: Acute (4) Encephalopathy acute Status: Resolved (5) Chronic back pain Status: Chronic Qualifiers: Back pain location: low back pain Back pain laterality: midline Sciatica presence: without sciatica Qualified Code(s): M54.5 - Low back pain; G89.29 - Other chronic pain (6) Insomnia Status: Chronic Qualifiers: Insomnia type: unspecified Qualified Code(s): G47.00 - Insomnia, uns pecified (7) Depression Status: Chronic Qualifiers: Depression Type: unspecified Qualified Code(s): F32.9 - Major depressive disorder, single episode, unspecified (8) C. difficile colitis Status: Acute (9) Community acquired pneumonia Status: Acute Qualifiers: Laterality: right Lung location: lower lobe of lung Qualified Code(s): J18.1 - Lobar pneumonia, unspecified organism Hospital course: Ms. Rogers is a 53 year old female - Time Spent with Patient Total time spent providing and/or coordinating discharge services: Date of admission: 12/28/18 01:22 Primary care physician: Tiffany Sutton Consults: 12/27/18 23:42 Consult to Interventional Radiology [CONS] Stat Consulting Provider: Radiology Interventional Cols Reason for Consult: lp needed Call Completed: Yes - Constitutional Vitals: Temp Pulse Resp BP Pulse Ox 98.5 F 63 16 111/74 95 12/31/18 10:45 12/31/18 10:45 12/31/18 10:45 12/31/18 10:45 12/31/18 10:45 - Attending Attestation I examined this patient and my medical decision-making was reviewed with the Resident Physician. I agree with the documented findings, disposition and treatment plan as described except to the extent set forth below.
[2018-12-31] MEDS ORDERED: Aminoglycoside Consult 1 EACH MC ONE (13:01)
[2019-01-02 16:05] LABS: HSV 1 Glycoprotein G IgG CSF 0.11 IV (<=0.89); HSV 2 Glycoprotein G IgG CSF 0.12 IV (<=0.89)
== END 2018-12-31 13:02 | disposition home or self-care (01) ==
LOC: EMEROOARM 17:42 → 3BNU 17:42 → 2NNU 17:42 → SUATTDRO 12-28 01:22 → 2NNU 12-28 01:38 → 3BNU 12-29 13:41
PROVIDERS: ADMIT Pediatrics; ATTEND Student in an Organized Health Care Education/Training Program

== ENCOUNTER 2022-04-24 12:54 | Observation (INO) ==
[2022-04-24 15:20] LABS: Basophils % 0.3 %; Eosinophils % 0.2 %; Hematocrit 44.6 % (35.3-44.9); Hemoglobin 14.7 g/dL (11.5-15.4); Immature Granulocytes % 0.3 % (0-4); Lymphocytes # 1.8 K/mcL (0.6-4.6); Lymphocytes % 17.7 %; Mean Corpuscular Hemoglobin 31.7 pg (28.0-33.3); Mean Corpuscular Volume 96.3 fL (83.0-100.0); Mean Platelet Volume 9.5 fL (9.4-12.4); Monocytes # 0.8 K/mcL (0.0-1.3); Monocytes % 8.3 %; Neutrophils # 7.4 K/mcL (1.6-8.9); Platelet Count 217 K/mcL (140-400); Red Blood Count 4.63 M/mcL (3.82-4.97); Red Cell Distribution Width 12.1 % (11.5-14.5); Segmented Neutrophils % 73.2 %; White Blood Count 10.2 K/mcL (4.3-11.1)
[2022-04-24 15:35] LABS: BUN/Creatinine Ratio 13 (6-26); Blood Urea Nitrogen 7 mg/dL (6-20); Calcium 8.9 mg/dL (8.6-10.3); Carbon Dioxide 29 mEq/L (23-29); Chloride 101 mEq/L (98-107); Glucose 118 mg/dL (70-105); Osmolality,Calculated 287 (280-300); Potassium 3.8 mEq/L (3.5-5.1); Sodium 139 mEq/L (136-145); eGFR For African Americans > 60 (> 60); eGFR For Non-African Americans > 60 (> 60)
[2022-04-24] MEDS ORDERED: Iopamidol - 370 500 ML MLS IVP ONE (15:51)
[2022-04-24] MEDS ORDERED: Ampicillin/Sulbactam 1,500 MG in 0.9 % Sodium Chloride Mini Bag 100 ML IVPB ONE (17:14)
[2022-04-24] MEDS ORDERED: *HR* OxyCODONE/APAP 5/325 TABLET PO ONE (17:15)
[2022-04-24] MEDS ORDERED: Melatonin 3 MG TABLET PO PRN (18:30)
[2022-04-24] MEDS ORDERED: Ondansetron ODT 4 MG TAB.RAPDIS SL PRN (18:30)
[2022-04-24] MEDS ORDERED: MOM Conc 10 ML UD.LIQ PO PRN (18:30)
[2022-04-24] MEDS ORDERED: Naloxone 0.4 MG/ML INJ IVP PRN (18:30)
[2022-04-24] MEDS ORDERED: Dextrose Gel 15 GM/37.5 ML TUBE PO PRN ×2 (18:48)
[2022-04-24] MEDS ORDERED: *HR* Dextrose 50 % in Water (Syg) 50 ML SYRINGE IVP PRN (18:48)
[2022-04-24] MEDS ORDERED: D5% in Water 1,000 ML IVC PRN (18:48)
[2022-04-24] MEDS: Insulin LISPRO 300 UNITS/3 ML VIAL SUBQ SCH (20:36)
[2022-04-24] MEDS: Lactobacillus 1 EACH CAP.SPRINK PO SCH (22:49)
[2022-04-24] MEDS: Ampicillin/Sulbactam 1,500 MG in 0.9 % Sodium Chloride Mini Bag 100 ML IVPB SCH (22:49)
[2022-04-25] MEDS: Acetaminophen 325 MG TABLET PO PRN ×2 (01:19→09:25)
[2022-04-25 05:56] LABS: Hematocrit 41.4 % (35.3-44.9); Hemoglobin 13.8 g/dL (11.5-15.4); Mean Corpuscular HGB Conc 33.3 g/dL (31.6-35.5); Mean Corpuscular Hemoglobin 32.1 pg (28.0-33.3); Mean Corpuscular Volume 96.3 fL (83.0-100.0); Mean Platelet Volume 9.6 fL (9.4-12.4); Platelet Count 206 K/mcL (140-400); Red Cell Distribution Width 11.9 % (11.5-14.5)
[2022-04-25] MEDS: Ampicillin/Sulbactam 1,500 MG in 0.9 % Sodium Chloride Mini Bag 100 ML IVPB SCH ×4 (06:10→23:16)
[2022-04-25 06:19] LABS: BUN/Creatinine Ratio 20 (6-26); Blood Urea Nitrogen 9 mg/dL (6-20); Calcium 8.6 mg/dL (8.6-10.3); Carbon Dioxide 28 mEq/L (23-29); Chloride 102 mEq/L (98-107); Glucose 105 mg/dL (70-105); Magnesium 2.1 mg/dL (1.6-2.6); Osmolality,Calculated 287 (280-300); Phosphorous 3.4 mg/dL (2.7-4.5); Potassium 3.7 mEq/L (3.5-5.1); Sodium 139 mEq/L (136-145); eGFR For African Americans > 60 (> 60); eGFR For Non-African Americans > 60 (> 60)
[2022-04-25] MEDS: Insulin LISPRO 300 UNITS/3 ML VIAL SUBQ SCH ×4 (09:23→20:23)
[2022-04-25] MEDS: Folic Acid 1 MG TABLET PO SCH (09:23)
[2022-04-25] MEDS: Diclofenac Sodium (DR) 50 MG TABLET.DR PO SCH ×3 (09:23→19:10)
[2022-04-25] MEDS: Lactobacillus 1 EACH CAP.SPRINK PO SCH ×2 (09:23→19:10)
[2022-04-26 05:07] LABS: Hematocrit 41.4 % (35.3-44.9); Hemoglobin 13.8 g/dL (11.5-15.4); Mean Corpuscular HGB Conc 33.3 g/dL (31.6-35.5); Mean Corpuscular Hemoglobin 31.7 pg (28.0-33.3); Mean Platelet Volume 9.9 fL (9.4-12.4); Platelet Count 227 K/mcL (140-400); Red Blood Count 4.36 M/mcL (3.82-4.97); Red Cell Distribution Width 11.9 % (11.5-14.5); White Blood Count 7.4 K/mcL (4.3-11.1)
[2022-04-26] MEDS: Ampicillin/Sulbactam 1,500 MG in 0.9 % Sodium Chloride Mini Bag 100 ML IVPB SCH (05:17)
[2022-04-26 05:32] LABS: BUN/Creatinine Ratio 28 (6-26); Blood Urea Nitrogen 12 mg/dL (6-20); Calcium 8.9 mg/dL (8.6-10.3); Carbon Dioxide 30 mEq/L (23-29); Chloride 105 mEq/L (98-107); Glucose 137 mg/dL (70-105); Osmolality,Calculated 294 (280-300); Potassium 3.9 mEq/L (3.5-5.1); Sodium 141 mEq/L (136-145); eGFR For African Americans > 60 (> 60); eGFR For Non-African Americans > 60 (> 60)
[2022-04-26 07:09] VITALS: O2SAT 97
[2022-04-26] MEDS: Insulin LISPRO 300 UNITS/3 ML VIAL SUBQ SCH (08:47)
[2022-04-26] MEDS ORDERED: lisinopriL 5 MG TABLET PO SCH (09:00)
[2022-04-26] MEDS ORDERED: ADALIMUMAB 40 MG SUBQ SCH (09:00)
[2022-04-26] MEDS: Diclofenac Sodium (DR) 50 MG TABLET.DR PO SCH (09:13)
[2022-04-26] MEDS: Lactobacillus 1 EACH CAP.SPRINK PO SCH (09:14)
[2022-04-26] MEDS: Folic Acid 1 MG TABLET PO SCH (09:14)
[2022-04-26 10:54] VITALS: BP 115/63; PULSE 55; TEMP 98.4
[2022-04-27] MEDS ORDERED: Methotrexate PFS 25 MG/ML VIAL SQ SCH (08:00)
== END 2022-04-26 12:12 | disposition home or self-care (01) ==
LOC: EMEROOARM 12:54 → 4WAOSI 12:54 → SUATTDRO 17:33 → 4WAOSI 19:57
PROVIDERS: ADMIT Student in an Organized Health Care Education/Training Program; ATTEND Internal Medicine